=== PATIENT | male | born 1945 | race Caucasian/White ===

== ENCOUNTER → 2020-10-05 | Outpatient (CLI) | payer MEDICARE, BC | LOC: HEART 5 09:45 | DX: R00.2 Palpitations (principal) ==

== ENCOUNTER 2020-12-04 12:43 | Emergency (ER) | payer MEDICARE, BC | END 2020-12-04 14:27 | disposition home or self-care (01) | LOC: ER1 12:43 | DX: U07.1 COVID-19 (principal); Z85.048 Personal history of other malignant neoplasm of rectum, rectosigmoid junction, and anus | CPT/HCPCS: 0240U; 99284 ==